=== PATIENT | male | born 1970 | race African-American/Black ===

== ENCOUNTER 2019-08-22 11:11 | Emergency (ER) | payer SELFPAY ==
[2019-08-22 11:17] VITALS: BP 110/70; PULSE 77; RESP 18; TEMP 36.7; O2SAT 96
--- NOTE | 2019-08-22 11:56 | PC.NURSE ---
Provider in room, found room empty with gown on chair.
== END 2019-08-22 11:56 | disposition left against medical advice (07) ==
PROVIDERS: Emergency Provider Emergency Medicine
DX: Z53.21 Procedure and treatment not carried out due to patient leaving prior to being seen by health care provider (principal)
CPT/HCPCS: 99199

== ENCOUNTER 2019-08-24 07:48 | Emergency (ER) | payer SELFPAY ==
--- NOTE | ~2019-08-24 | XR_ITS ---
EXAMINATION: XR chest 2V EXAM DATE: 08/24/2019 08:25 INDICATION: Cough for 2 weeks. TECHNIQUE: Frontal and lateral projections of the chest obtained and reviewed. Comparison is made to prior examination from 07/17/2019. FINDINGS: Previously seen right basilar somewhat nodular region has resolved. The lungs are clear. There are no pleural effusions. The cardiomediastinal silhouette is within normal limits. There is no pneumothorax suspected. The bones and soft tissues are unremarkable. IMPRESSION: Normal chest x-ray exam. Reviewed, dictated and finalized at location A. 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
[2019-08-24 08:00] VITALS: BP 136/73; PULSE 71; RESP 14; TEMP 37.5; O2SAT 100
[2019-08-24 08:03] VITALS: O2SAT 100
--- NOTE | 2019-08-24 08:04 | ED.URI ---
HPI - URI/Sore Throat General Chief Complaint: Upper Respiratory Infection Stated Complaint: congestion Time Seen by Provider: 08/24/19 08:01 Source: patient and RN notes reviewed Mode of arrival: ambulatory Limitations: no limitations History of Present Illness HPI Narrative: Pt is a 49 y/o male who presents to the ED with c/o chest congestion which began 3 days ago. Pt reports a productive cough, but denies a fever, chills, or pain anywhere else in his body. Pt reports he is producing thick white mucus when he coughs. He states he believes he may have pneumonia which prompted him to come to the ED to be evaluated. Pt reports he was seen in the ED yesterday for the same complaints, but left AMA. He states he is back at the ED today because he was not given a formal diagnosis. MD elicited complaint: other (chest congestion) Onset (ago): day(s) (3 days ago) Consistency: constant Description of mucous: other (thick white) Exacerbating factors: nothing Relieving factors: nothing Associated symptoms: cough (productive) Related Data Home Medications Medication Instructions Recorded Confirmed lisinopril 20 1 tablet PO BID 07/27/19 mg-hydrochlorothiazide 12.5 mg tablet atorvastatin 08/24/19 Allergies Allergy/AdvReac Type Severity Reaction Status Date / Time No Known Allergies Allergy Unknown Verified 07/17/19 13:59 Review of Systems Review of Systems: All systems reviewed & are unremarkable except as noted in HPI and below Constitutional: Constitutional: Denies chills, Denies fever(s) and Denies other (pain anywhere else in her body) Cardiovascular: Cardiovascular: Reports other (chest congestion) Respiratory: Respiratory: Reports cough (productive) PMFSH Past Medical History Medical History (Updated 08/24/19 @ 08:52 by Max Mccormick MD) Diabetes Hyperlipidemia Hypertension Sickle cell trait Social History Social History Smoking status: Never smoker Alcohol intake: current Gender identity (if verbalized by the patient): Male Exam Narrative: Exam Narrative: GENERAL: Well-appearing, well-nourished, and in no acute distress. HEAD: Normocephalic, atraumatic. EYES: PERRLA and EOMI. ENT: Nares clear, no rhinorrhea or epistaxis. Mucous membranes moist. NECK: Supple. CHEST: Clear to auscultation. No respiratory distress. HEART: Regular rate and rhythm. No murmur heard. Normal peripheral pulses. ABDOMEN: Soft, nontender, nondistended, normal active bowel sounds. EXTREMITIES: Normal range of motion. No edema. SKIN: Warm, dry, no rash. NEURO: No focal deficits. Alert and oriented x3. PSYCH: Normal mood and affect. Course Course Emergency Course: Inform patient about his x-ray findings. Advised him to continue to take [id number] cough medicine as needed. Vital Signs Vital signs: Vital Signs Temperature 37.5 C 08/24/19 08:00 Pulse Rate 71 08/24/19 08:00 Respiratory Rate 14 08/24/19 08:00 Blood Pressure 136/73 08/24/19 08:00 Pulse Oximetry 100 08/24/19 08:00 Temperature 37.5 C 08/24/19 08:00 Pulse Rate 71 08/24/19 08:00 Respiratory Rate 14 08/24/19 08:00 Blood Pressure 136/73 08/24/19 08:00 Pulse Oximetry 100 08/24/19 08:03 Discharge Plan Discharge Clinical Impression: Viral infection Patient Disposition: Home, Self-Care Condition: Stable Instructions: Antibiotic Form, Viral Syndrome (ED) Prescriptions: No Action atorvastatin RF: 0 lisinopril-hydrochlorothiazide 20-12.5 mg tablet 1 tablet PO BID RF: 0 amlodipine 10 mg tablet 10 mg PO DAILY Qty: 90 RF: 1 Follow-up/Referrals: UNKNOWN,DOCTOR [Primary Care Provider] - Time of Disposition: 08:51
[2019-08-24 09:01] VITALS: BP 132/74; PULSE 80; RESP 14; O2SAT 99
== END 2019-08-24 09:03 | disposition home or self-care (01) ==
PROVIDERS: Emergency Provider Family Medicine
DX: B34.9 Viral infection, unspecified (principal); E11.9 Type 2 diabetes mellitus without complications; E78.5 Hyperlipidemia, unspecified; I10 Essential (primary) hypertension; D57.3 Sickle-cell trait
CPT/HCPCS: 71046; 99283

== ENCOUNTER 2020-02-04 17:31 | Emergency (ER) | payer SELFPAY ==
[2020-02-04 18:10] VITALS: BP 147/85; PULSE 112; RESP 16; TEMP 36.8; O2SAT 98
== END 2020-02-04 19:21 | disposition left against medical advice (07) ==
LOC: ANHED 19:26
PROVIDERS: PCP Family Medicine
DX: M25.472 Effusion, left ankle (principal)
CPT/HCPCS: 99199

== ENCOUNTER 2020-02-10 17:42 | Emergency (ER) | payer BC, SELFPAY ==
[2020-02-10 17:47] VITALS: BP 157/104; PULSE 97; RESP 18; TEMP 37.1; O2SAT 18
[2020-02-10 18:00] LABS: Basophils Percent Auto 0.1 % (0.2-1.2); Eosinophils Absolute Auto 0.1 K/mm3 (0-0.3); Eosinophils Percent Auto 0.9 % (0-4.4); Hematocrit 41.4 % (42.0-52.0); Hemoglobin 14.5 g/dL (14.0-18.0); Immature Granulocyte Absolute 0.02 K/mm3 (0.00-0.031); Immature Granulocyte Percent A 0.3 % (0-0.5); Mean Corpuscular Hemoglobin 28.6 pg (26-34); Mean Corpuscular Volume 81.7 fl (80-100); Mean Platelet Volume 10.5 fl (7.4-10.4); Monocytes Absolute Auto 0.4 K/mm3 (0.1-0.6); Monocytes Percent Auto 5.9 % (2.6-8.5); Neutrophils Percent Auto 58.8 % (45.5-73.1); Platelet Count Result 196 k/mm3 (150-375); Red Blood Count 5.07 M/mm3 (4.6-6.20); Red Cell Distribution Width 12.9 % (11.5-14.5); White Blood Count 6.8 K/mm3 (4.5-10.0)
[2020-02-10 18:13] LABS: Alanine Aminotransferase 39 U/L (4-50); Albumin Level 4.6 g/dL (3.5-5.1); Alkaline Phosphatase 105 U/L (38-126); Aspartate Amino Transferase 33 U/L (17-59); Bilirubin,Total 1.9 mg/dL (0.2-1.3); Blood Urea Nitrogen 11 mg/dL (9-20); Carbon Dioxide 27 mmol/L (22-30); Chloride 101 mmol/L (98-107); Estimated CRCL calculation 103 ml/min; Estimated Glomerular Filt Rate > 60; Glucose 184 mg/dL (75-110); Sodium 139 mmol/L (137-145)
[2020-02-10 18:26] LABS: D Dimer 0.27 ug/mL (<0.48)
--- NOTE | 2020-02-10 19:02 | ED.LOWEXIN ---
HPI - Extremity Injury (Lower) General Chief Complaint: Extremity Injury, Lower Stated Complaint: Possible Blood Clot Time Seen by Provider: 02/10/20 19:02 History of Present Illness HPI Narrative: Swelling in the bilateral lower legs this morning. After work the swelling in the right leg had resolved. There is still swelling in the left ankle. 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 He is concerned about DVT. No h/o DVT. No CP, SOB, colf pain. H/o HTN. Related Data Allergies Allergy/AdvReac Type Severity Reaction Status Date / Time No Known Allergies Allergy Unknown Verified 02/04/20 18:13 Review of Systems Review of Systems: All systems reviewed & are unremarkable except as noted in HPI and below Constitutional: Constitutional: Denies fever(s) Cardiovascular: Cardiovascular: Denies chest pain Respiratory: Respiratory: Denies dyspnea Gastrointestinal: Gastrointestinal: Denies nausea and Denies vomiting Neurologic: Denies numbness and Denies weakness PMFSH Past Medical History Medical History Diabetes Hyperlipidemia Hypertension Sickle cell trait Social History Social History Smoking status: Never smoker Alcohol intake: current Gender identity (if verbalized by the patient): Male Exam Const: General: healthy appearing, no acute distress and alert Orientation/consciousness: patient oriented x3 HENMT: Head: normal to inspection Neck: Neck: normal visual inspection and no lymphadenopathy Chest: Chest palpation & inspection: no tenderness Resp: Effort & Inspection: normal respiratory effort Auscultation: clear to auscultation bilaterally, no rales, no rhonchi and no wheezes Cardio: Jugular venous distension: no JVD Rate: regular rate Rhythm: regular rhythm Heart sounds: no murmurs Other: 2+ Dp bilaterally Skin: General skin exam: normal color Wounds: no wounds Neuro: General: patient oriented x3 and moves all extremities Speech: normal speech Extrem: General: edema (Trace left ankle) Psych: Appearance: grossly normal and well kempt Mental Status: mental status grossly normal Affect: normal affect Attitude: cooperative Course Vital Signs Vital signs: Vital Signs Temperature 37.1 C 02/10/20 17:47 Pulse Rate 97 02/10/20 17:47 Respiratory Rate 18 02/10/20 17:47 Blood Pressure 157/104 H 02/10/20 17:47 Pulse Oximetry 18 L 02/10/20 17:47 Temperature 37.1 C 02/10/20 17:47 Pulse Rate 97 02/10/20 17:47 Respiratory Rate 18 02/10/20 17:47 Blood Pressure 157/104 H 02/10/20 17:47 Pulse Oximetry 18 L 02/10/20 17:47 Procedures Other Procedure Procedure 1: Other Procedure: Bedside US Left femoral and popliteal veins fully compressible. No DVT MDM - Extremity Injury (Lower) MDM Narrative Medical decision making narrative: D-dimer normal. No DVT on bedside ultrasound. Lab Data Result diagrams: 02/10/20 17:52 02/10/20 17:52 Labs: Lab Results 02/10/20 02/10/20 02/10/20 Range/Units 17:52 17:52 17:52 WBC 6.8 (4.5-10.0) K/mm3 RBC 5.07 (4.6-6.20) M/mm3 Hgb 14.5 (14.0-18.0) g/dL Hct 41.4 L (42.0-52.0) % MCV 81.7 (80-100) fl MCH 28.6 (26-34) pg MCHC 35.0 (32-36) g/dl RDW 12.9 (11.5-14.5) % Plt Count 196 (150-375) k/mm3 MPV 10.5 H (7.4-10.4) fl Immature Gran % (Auto) 0.3 (0-0.5) % Neut % (Auto) 58.8 (45.5-73.1) % Lymph % (Auto) 34.0 (18.3-44.2) % [place] % (Auto) 5.9 (2.6-8.5) % Eos % (Auto) 0.9 (0-4.4) % Baso % (Auto) 0.1 L (0.2-1.2) % Lymph # (Auto) 2.30 (0.9-3.2) K/mm3 [place] # (Auto) 0.4 (0.1-0.6) K/mm3 Eos # (Auto) 0.1 (0-0.3) K/mm3 Baso # (Auto) 0.0 (0.0-0.1) K/mm3 Abs Immat Gran (auto) 0.02 (0.00-0.031) K/mm3 Absolute Neuts (auto) 4.0 (1.3-6.7) K/mm3 Absolute Nucleated RBC 0.0 (0.0-0.012) K/mm3 N
== END 2020-02-10 19:23 | disposition home or self-care (01) ==
PROVIDERS: Emergency Medicine; Emergency Provider Emergency Medicine; PCP Family Medicine
DX: I10 Essential (primary) hypertension (principal); R60.9 Edema, unspecified; E11.9 Type 2 diabetes mellitus without complications; E78.5 Hyperlipidemia, unspecified
CPT/HCPCS: 36415; 80053; 85025; 85380; 99283

== ENCOUNTER 2020-03-10 07:39 | Emergency (ER) | payer OTHER, BC, SELFPAY ==
--- NOTE | ~2020-03-10 | XR_ITS ---
EXAMINATION: XR forearm LT 2V DATE: 03/10/2020 08:13 INDICATION: Left forearm injury with radial sided proximal left forearm pain. TECHNIQUE: AP an lateral views of the left forearm were obtained. COMPARISON: none FINDINGS: Bone alignment is normal. No fracture. No interval change in corticated heterotopic ossicles along th e medial and lateral epicondyles of the elbow along the expected humeral insertions of the common fle xor and extensor tendon wads as well as the ulnar collateral ligament likely sequela of old trauma. J oint spaces are normal. No left elbow joint effusion. Soft tissues are unremarkable. IMPRESSION: 1. No acute osseous abnormality. Reviewed, dictated and finalized at location B.
[2020-03-10 07:50] VITALS: BP 133/90; PULSE 85; RESP 16; TEMP 37; O2SAT 97
--- NOTE | 2020-03-10 09:03 | ED.UPPEXIN ---
HPI - Extremity Injury (Upper) General Chief Complaint: Extremity Injury, Upper Stated Complaint: left elbow pain Time Seen by Provider: 03/10/20 08:59 Source: patient Mode of arrival: ambulatory Limitations: no limitations History of Present Illness HPI narrative: Patient is 49 years old -[place] male hit the back of the left fore arm while getting out of a truck 3 weeks ago. Patient believes there is a bone sticking at that area. Patient denies fever, chills, nausea, vomiting, focal weakness, tingling or numbness. Related Data Allergies Allergy/AdvReac Type Severity Reaction Status Date / Time No Known Allergies Allergy Unknown Verified 03/10/20 07:59 Review of Systems Review of Systems: Narrative: CONSTITUTIONAL: Denies fever, chills, or sweats. EYES: Denies visual changes, redness, or discharge. ENT: Denies rhinorrhea, congestion, sore throat, or otalgia. CARDIOVASCULAR: Denies chest pain, palpitations, or edema. RESPIRATORY: Denies cough or dyspnea. GASTROINTESTINAL: Denies abdominal pain, nausea, vomiting, or diarrhea. GENITOURINARY: Denies dysuria or hematuria. SKIN: Denies rash or itching. MUSCULOSKELETAL: Denies back pain, joint pain, or myalgia. NEUROLOGIC: Denies headache, numbness, or weakness. PSYCHIATRIC: Denies anxiety or depression. [facility] Past Medical History Medical History Diabetes Hyperlipidemia Hypertension Sickle cell trait Social History Social History Smoking status: Never smoker Alcohol intake: current Gender identity (if verbalized by the patient): Male Exam Narrative: Exam Narrative: General appearance: Well-developed, well-nourished Skin: Normal color Head: Normocephalic, nontraumatic Eyes: Clear conjunctiva ENT: Oropharynx normal, ears normal, nose normal Neck: Supple, nontender Chest and respiratory: Airway patent, no respiratory distress, no accessory muscle use Heart: Regular rate/rhythm Abdomen: Soft, nontender, no organomegaly, quiet bowel sounds Vascular: Normal peripheral pulses, normal capillary refill. Musculoskeletal: Normal range of motion, nontender back. Slight tenderness left forearm posteriorly, no swelling, no bruises or deformity Neurologic: Alert and oriented ?3, BACT[employer]IOLOGIST [employer] is normal as tested, no gross motor deficit Course Course Emergency Course: Stable Vital Signs Vital signs: Vital Signs Temperature 37.0 C 03/10/20 07:50 Pulse Rate 85 03/10/20 07:50 Respiratory Rate 16 03/10/20 07:50 Blood Pressure 133/90 03/10/20 07:50 Pulse Oximetry 97 03/10/20 07:50 Temperature 37.0 C 03/10/20 07:50 Pulse Rate 85 03/10/20 07:50 Respiratory Rate 16 03/10/20 07:50 Blood Pressure 133/90 03/10/20 07:50 Pulse Oximetry 97 03/10/20 07:50 MDM - Extremity Injury (Upper) MDM Narrative Medical decision making narrative: Confusion is my concern, x-ray ordered. Critical Care Time Critical Care Time Critical Care Time: No Discharge Plan Discharge Clinical Impression: Contusion of left upper limb Patient Disposition: Home, Self-Care Condition: Stable Instructions: Contusion in Adults (ED) Additional Instructions: Return if symptoms are worsening , call your family physician for appointment, take Tylenol as as needed for aches and pain, continue home medications. Prescriptions: New naproxen [EC-Naproxen] 500 mg tablet,delayed release (DR/EC) 500 mg PO BID PRN (Reason: pain) Qty: 14 RF: 0 No Action amlodipine 10 mg tablet 10 mg PO DAILY Qty: 90 RF: 1 atorvastatin 40 mg tablet 40 mg PO .QHS Qty: 90 RF: 0 lisino
== END 2020-03-10 09:23 | disposition home or self-care (01) ==
PROVIDERS: Emergency Provider Emergency Medicine; PCP Family Medicine
DX: S50.12XA Contusion of left forearm, initial encounter (principal); E11.9 Type 2 diabetes mellitus without complications; E78.5 Hyperlipidemia, unspecified; I10 Essential (primary) hypertension; D57.3 Sickle-cell trait; W22.8XXA Striking against or struck by other objects, initial encounter
CPT/HCPCS: 73090; 99283

== ENCOUNTER 2020-11-30 16:37 | Emergency (ER) | payer BC, SELFPAY ==
[2020-11-30 16:41] VITALS: BP 170/81; PULSE 77; RESP 18; TEMP 36.3; O2SAT 99
--- NOTE | 2020-11-30 16:44 | ECG_ITS ---
Measurements Intervals [place] Rate: 69 P: 48 IN: 168 QRS: 11 QRSD: 103 T: 118 QT: 396 QTc: 426 Interpretive Statements SINUS RHYTHM EARLY PRECORDIAL R/S TRANSITION NONSPECIFIC ST & T-WAVE ABNORMALITY- LAT/HIGH LAT LEADS BORDERLINE ECG Electronically Signed On 11-30-2020 19:54:19 CDT by Jean Edwards D.O.
[2020-11-30 17:00] LABS: Basophils Percent Auto 0.1 % (0.2-1.2); Eosinophils Absolute Auto 0.1 K/mm3 (0-0.3); Eosinophils Percent Auto 0.7 % (0-4.4); Hematocrit 38.3 % (42.0-52.0); Hemoglobin 13.9 g/dL (14.0-18.0); Immature Granulocyte Absolute 0.02 K/mm3 (0.00-0.031); Immature Granulocyte Percent A 0.3 % (0-0.5); Lymphocytes Absolute Auto 2.38 K/mm3 (0.9-3.2); Lymphocytes Percent Auto 31.3 % (18.3-44.2); Mean Corpuscular HGB Conc 36.3 g/dl (32-36); Mean Corpuscular Volume 77.1 fl (80-100); Mean Platelet Volume 10.3 fl (7.4-10.4); Monocytes Absolute Auto 0.5 K/mm3 (0.1-0.6); Monocytes Percent Auto 6.2 % (2.6-8.5); Neutrophils Absolute Auto 4.7 K/mm3 (1.3-6.7); Neutrophils Percent Auto 61.4 % (45.5-73.1); Platelet Count Result 210 k/mm3 (150-375); Red Blood Count 4.97 M/mm3 (4.6-6.20); Red Cell Distribution Width 13.1 % (11.5-14.5); White Blood Count 7.6 K/mm3 (4.5-10.0)
[2020-11-30 17:18] LABS: Anion Gap 9 mmol/L (8-16); Blood Urea Nitrogen 14 mg/dL (9-20); Calcium 9.3 mg/dL (8.4-10.2); Carbon Dioxide 29 mmol/L (22-30); Chloride 103 mmol/L (98-107); Estimated CRCL calculation 101 ml/min; Estimated Glomerular Filt Rate > 60; Glucose 125 mg/dL (75-110); Sodium 141 mmol/L (137-145)
--- NOTE | 2020-11-30 18:17 | PC.NURSE ---
Pt called twice to go back to a room. pt did not answer
== END 2020-11-30 18:16 | disposition left against medical advice (07) ==
LOC: ANHED 18:28
PROVIDERS: Emergency Provider Emergency Medicine; PCP Family Medicine
DX: R42 Dizziness and giddiness (principal)
CPT/HCPCS: 36415; 80048; 85025; 93005; 99199

== ENCOUNTER 2020-12-01 09:20 | Emergency (ER) | payer BC, SELFPAY ==
[2020-12-01] VITALS (18 sets, daily range): BP systolic 132–156; BP diastolic 68–105; PULSE 56–74; RESP 8–23; TEMP 35.9; O2SAT 97–100
--- NOTE | ~2020-12-01 | XR_ITS ---
EXAMINATION: XR chest 2V DATE: 12/01/2020 10:28 INDICATION: Dizziness. TECHNIQUE: Frontal and lateral views of the chest were obtained. COMPARISON: Chest 2 views 08/24/2019 FINDINGS: The chest demonstrates clear lungs without pneumonia, pleural effusion, or pneumothorax. Th e heart size is normal. IMPRESSION: 1. No acute cardiopulmonary disease. Reviewed, dictated and finalized at location B.
--- NOTE | ~2020-12-01 | CT_ITS ---
EXAMINATION: CT brain wo con DATE: 12/01/2020 11:07 INDICATION: Dizziness and paresthesias. TECHNIQUE: Computed tomography (CT) of the head was performed without intravenous contrast. Sagittal and coronal reconstructions were performed. The mA was adjusted according to patient size. Iterative reconstruction technique was employed. The dose-length product was 529.67 mGy-cm. COMPARISON: head CT dated 07/17/2019 FINDINGS: No acute intracranial hemorrhage, acute infarction or abnormal extra axial fluid collection. Ventricl es are normal and symmetric. No mass/mass effect. The orbits, paranasal sinuses and mastoid air cells are normal. IMPRESSION: 1. Normal head CT. Reviewed, dictated and finalized at location A. IMPRESSION: 1. Normal head CT.
--- NOTE | 2020-12-01 09:30 | ECG_ITS ---
Measurements Intervals [place] Rate: 62 P: 58 NE: 167 QRS: 3 QRSD: 109 T: 178 QT: 398 QTc: 406 Interpretive Statements SINUS RHYTHM ST-T WAVE ABNORMALITY IN ANTEROLATERAL LEADS- CONSIDER ISCHEMIA BASELINE ARTIFACT- I, II, III, AVR, AVL,A VF, V2-V6 ABNORMAL ECG Electronically Signed On 12-01-2020 10:15:10 CDT by Jean Edwards D.O.
[2020-12-01 09:54] LABS: Basophils Percent Auto 0.4 % (0.2-1.2); Eosinophils Percent Auto 0.6 % (0-4.4); Hematocrit 43.4 % (42.0-52.0); Hemoglobin 14.9 g/dL (14.0-18.0); Immature Granulocyte Absolute 0.02 K/mm3 (0.00-0.031); Immature Granulocyte Percent A 0.4 % (0-0.5); Lymphocytes Absolute Auto 1.66 K/mm3 (0.9-3.2); Lymphocytes Percent Auto 31.6 % (18.3-44.2); Mean Corpuscular HGB Conc 34.3 g/dl (32-36); Mean Corpuscular Hemoglobin 28.4 pg (26-34); Mean Corpuscular Volume 82.7 fl (80-100); Mean Platelet Volume 10.4 fl (7.4-10.4); Monocytes Absolute Auto 0.3 K/mm3 (0.1-0.6); Monocytes Percent Auto 5.7 % (2.6-8.5); Neutrophils Absolute Auto 3.2 K/mm3 (1.3-6.7); Neutrophils Percent Auto 61.3 % (45.5-73.1); Platelet Count Result 210 k/mm3 (150-375); Red Blood Count 5.25 M/mm3 (4.6-6.20); White Blood Count 5.3 K/mm3 (4.5-10.0)
[2020-12-01 10:05] LABS: Anion Gap 7 mmol/L (8-16); Blood Urea Nitrogen 11 mg/dL (9-20); Calcium 9.7 mg/dL (8.4-10.2); Carbon Dioxide 32 mmol/L (22-30); Chloride 106 mmol/L (98-107); Estimated CRCL calculation 110 ml/min; Estimated Glomerular Filt Rate > 60; Glucose 191 mg/dL (75-110); Potassium 3.1 mmol/L (3.4-5.0); Sodium 145 mmol/L (137-145)
[2020-12-01 10:15] LABS: Alanine Aminotransferase 21 U/L (4-50); Albumin Level 4.6 g/dL (3.5-5.1); Alkaline Phosphatase 82 U/L (38-126); Aspartate Amino Transferase 35 U/L (17-59); Bilirubin,Total 2.1 mg/dL (0.2-1.3)
--- NOTE | 2020-12-01 10:51 | ED.DIZZY ---
HPI - Dizziness General Chief Complaint: Dizziness Stated Complaint: dizzy Time Seen by Provider: 12/01/20 09:56 Source: patient Mode of arrival: ambulatory Limitations: no limitations History of Present Illness HPI Narrative: This is a 50-year-old male that presents the emergency department for lightheadedness since yesterday. Reports it happens when he stands up. Reports it feels like he is going to pass out. Reports he was going to be seen here for this yesterday, but the wait was too long so he left. Reports yesterday he also had a headache and some tingling in his left arm which resolved after a couple of hours when he went out in the fresh air. Denies any current symptoms. Denies fever, vision changes, vomiting, chest pain, shortness of breath, numbness, or weakness. Related Data Allergies Allergy/AdvReac Type Severity Reaction Status Date / Time No Known Allergies Allergy Unknown Verified 03/10/20 07:59 Review of Systems Review of Systems: Narrative: CONSTITUTIONAL: Denies fever EYES: Denies visual changes CARDIOVASCULAR: Denies chest pain, or edema. RESPIRATORY: Denies dyspnea. GASTROINTESTINAL: Denies vomiting NEUROLOGIC: Denies headache, numbness, or weakness. All systems reviewed & are unremarkable except as noted in HPI and below PMFSH Past Medical History Medical History (Updated 12/01/20 @ 12:50 by Lori David PA-C) Diabetes Hyperlipidemia Hypertension Sickle cell trait Social History Social History Smoking status: Never smoker Alcohol intake: current Gender identity (if verbalized by the patient): Male Exam Narrative: Exam Narrative: GENERAL: Well-appearing, well-nourished, and in no acute distress. HEAD: Normocephalic, atraumatic. EYES: PERRLA and EOMI. ENT: Nares clear, no rhinorrhea or epistaxis. Mucous membranes moist. Oropharynx without tonsillar hypertrophy exudate or other lesions. Bilateral TMs pearly reich non-bulging NECK: Supple. No adenopathy or masses. CHEST: Clear to auscultation. No respiratory distress. No wheezes rales or rhonchi HEART: Regular rate and rhythm. No murmur heard. Normal peripheral pulses. ABDOMEN: Soft, nontender, nondistended, normal active bowel sounds. EXTREMITIES: Normal range of motion. No edema. Strength equal in bilateral upper and lower extremities (5/5) SKIN: Warm, dry, no rash. NEURO: No focal deficits. Alert and oriented x3. Cranial nerves II through XII grossly intact. Normal [id number] PSYCH: Anxious Course Vital Signs Vital signs: Vital Signs Temperature 96.6 F L 12/01/20 09:26 Pulse Rate 60 12/01/20 09:26 Respiratory Rate 18 12/01/20 09:26 Blood Pressure 150/93 H 12/01/20 09:26 Pulse Oximetry 99 12/01/20 09:26 Temperature 96.6 F L 12/01/20 09:26 Pulse Rate 74 12/01/20 10:05 Respiratory Rate 20 12/01/20 10:05 Blood Pressure 135/105 H 12/01/20 10:05 Pulse Oximetry 100 12/01/20 10:05 MDM - Dizziness MDM Narrative Medical decision making narrative: Patient presents the emergency department for intermittent lightheadedness since yesterday. He is a febrile nontoxic-appearing. He is neurologically intact. Vitals are stable. He denies any chest pain or shortness of breath. CBC without concerning findings. Metabolic panel with mild hypokalemia. Patient given dose of potassium in the ED. Chest x-ray is without acute findings. CT scan of the brain is normal. EKG shows nonspecific ST changes. This appears unchanged from his EKG in July of last year. Once again he denies any chest pain or shortness of breath. Reports relief of symptoms with mild hydration. Would like to go home. Patient is stable and felt appropriate for further outpatient evaluation. Instructed to have close follow-up with his primary care doctor. He was given warnings to return to the ER Lab Data Attestation: I reviewed the patient's lab results. Result diagrams: 11/06
[2020-12-01] MEDS: POTASSIUM CHLORIDE 20 MEQ TABLET 40 MEQ PO (10:55)
[2020-12-01] MEDS: SODIUM CHLORIDE 0.9% IV 500 ML 999 ML IV CONT (11:15)
== END 2020-12-01 12:57 | disposition home or self-care (01) ==
PROVIDERS: Physician Assistant; Emergency Provider Emergency Medicine; PCP Physician Assistant
DX: R42 Dizziness and giddiness (principal); E87.6 Hypokalemia; E11.9 Type 2 diabetes mellitus without complications; E78.5 Hyperlipidemia, unspecified; I10 Essential (primary) hypertension; D57.3 Sickle-cell trait
CPT/HCPCS: 36415; 70450; 71046; 80048; 80076; 85025; 93005; 96360; 99284; A9270; J7040

== ENCOUNTER 2021-01-28 22:19 | Emergency (ER) | payer BC, SELFPAY ==
[2021-01-28 22:26] VITALS: BP 114/94; PULSE 72; RESP 18; TEMP 36.5; O2SAT 100
--- NOTE | 2021-01-28 23:56 | PC.NURSE ---
Pt called for room at this time. No answer.
--- NOTE | 2021-01-29 00:18 | PC.NURSE ---
2nd call to bring pt back to room. No answer.
[2021-01-29 08:37] LABS: Glucose Point of Care 181 mg/dl (65-105)
== END 2021-01-28 23:56 | disposition left against medical advice (07) ==
PROVIDERS: Emergency Provider Emergency Medicine; PCP Physician Assistant
DX: R73.9 Hyperglycemia, unspecified (principal)
CPT/HCPCS: 82948; 99199

== ENCOUNTER 2021-01-31 21:55 | Emergency (ER) | payer BC, SELFPAY ==
[2021-01-31 22:21] VITALS: BP 134/93; PULSE 71; RESP 15; TEMP 36.3; O2SAT 100
[2021-01-31 22:30] LABS: Glucose Point of Care 139 mg/dl (65-105)
[2021-01-31 22:36] LABS: Basophils Percent Auto 0.3 % (0.2-1.2); Eosinophils Absolute Auto 0.1 K/mm3 (0-0.3); Hemoglobin 13.7 g/dL (14.0-18.0); Immature Granulocyte Absolute 0.01 K/mm3 (0.00-0.031); Immature Granulocyte Percent A 0.1 % (0-0.5); Lymphocytes Absolute Auto 1.87 K/mm3 (0.9-3.2); Lymphocytes Percent Auto 27.7 % (18.3-44.2); Mean Corpuscular HGB Conc 33.4 g/dl (32-36); Mean Corpuscular Volume 83.7 fl (80-100); Mean Platelet Volume 10.5 fl (7.4-10.4); Monocytes Absolute Auto 0.5 K/mm3 (0.1-0.6); Monocytes Percent Auto 7.2 % (2.6-8.5); Neutrophils Absolute Auto 4.3 K/mm3 (1.3-6.7); Neutrophils Percent Auto 63.7 % (45.5-73.1); Platelet Count Result 210 k/mm3 (150-375); Red Cell Distribution Width 13.1 % (11.5-14.5); White Blood Count 6.8 K/mm3 (4.5-10.0)
[2021-01-31 23:36] LABS: Anion Gap 10 mmol/L (8-16); Blood Urea Nitrogen 13 mg/dL (9-20); Calcium 9.2 mg/dL (8.4-10.2); Carbon Dioxide 30 mmol/L (22-30); Chloride 98 mmol/L (98-107); Estimated CRCL calculation 91 ml/min; Estimated Glomerular Filt Rate > 60; Glucose 120 mg/dL (65-110); Potassium 3.3 mmol/L (3.4-5.0); Sodium 138 mmol/L (137-145)
--- NOTE | 2021-01-31 23:40 | PC.NURSE ---
Pt. up to front worker asking RN how much longer. RN educated pt. that it is difficult to tell. pt. states he doesn't know if he should stay or leave. Pt. NAD upon assessment.
--- NOTE | 2021-02-01 00:20 | PC.NURSE ---
Pt. called 2x for triage. no answer.
== END 2021-02-01 01:06 | disposition left against medical advice (07) ==
PROVIDERS: Emergency Provider Emergency Medicine; PCP Physician Assistant
DX: R42 Dizziness and giddiness (principal)
CPT/HCPCS: 36415; 80048; 82948; 85025; 99199

== ENCOUNTER 2021-02-26 07:39 | Emergency (ER) | payer BC, SELFPAY ==
[2021-02-26 07:46] VITALS: BP 129/66; PULSE 62; RESP 18; TEMP 36.6; O2SAT 99
--- NOTE | 2021-02-26 07:57 | ED.EAR ---
HPI - Ear Problem General Chief complaint: Ear Stated complaint: left ear ache Time Seen by Provider: 02/26/21 07:45 Source: patient and RN notes reviewed Mode of arrival: ambulatory Limitations: no limitations History of Present Illness HPI Narrative: This is a 50 year old male who presents for evaluation of left ear pain. Patient reports left inner ear pain for 1 week. HE states pain seems worse with laying on it. He has placed peroxide in his left ear and he states his pain has improved. He denies fever, runny nose congestion, nausea or vomiting. He denies any drainage from his ear. Related Data Home Medications Medication Instructions Recorded Confirmed atorvastatin 40 mg PO HS 02/26/21 lisinopril-hydrochlorothiazide 1 tablet PO BID 02/26/21 metformin 500 mg PO DAILY 02/26/21 02/26/21 Allergies Allergy/AdvReac Type Severity Reaction Status Date / Time No Known Allergies Allergy Unknown Verified 02/26/21 07:50 Review of Systems Review of Systems: All systems reviewed & are unremarkable except as noted in HPI and below PMFSH Past Medical History Medical History (Updated 02/26/21 @ 08:02 by Hyacinth Ureña MD) Diabetes Hyperlipidemia Hypertension Sickle cell trait Social History Social History Smoking status: Never smoker Alcohol intake: current Gender identity (if verbalized by the patient): Male Exam Const: General: no acute distress and alert Orientation/consciousness: patient oriented x3 HENMT: Head: normocephalic and atraumatic Ears: external ears normal and TM's normal bilaterally General nose exam: Normal external nose present Face and sinus: normal facial exam, sinuses nontender and face symmetric Mouth: Yes Normal oral and palatal mucosa present, Yes lip normal, Yes oropharynx normal and Yes moist mucous membranes Teeth and gingiva: fair dentition Throat: posterior oropharynx normal, tonsils normal and uvula midline Eyes: Pupils: Equal, round and reactive pupils present EOM: EOMs intact bilaterally Resp: Effort & Inspection: normal respiratory effort Neuro: General: patient oriented x3 and moves all extremities Gait exam (Neuro): Normal gait present Psych: Mental Status: mental status grossly normal Affect: normal affect Course Reevaluation(s) Reevaluation #1: I have discussed with patient is ear exam is unremarkable. He will try using over the counter decongestants. Date: 02/26/21 Time: 08:00 Vital Signs Vital signs: Vital Signs Temperature 97.8 F 02/26/21 07:46 Pulse Rate 62 02/26/21 07:46 Respiratory Rate 18 02/26/21 07:46 Blood Pressure 129/66 02/26/21 07:46 Pulse Oximetry 99 02/26/21 07:46 Temperature 97.8 F 02/26/21 07:46 Pulse Rate 62 02/26/21 07:46 Respiratory Rate 18 02/26/21 07:46 Blood Pressure 129/66 02/26/21 07:46 Pulse Oximetry 99 02/26/21 07:46 Medical Decision Making Vital Signs Vital Signs: Vital Signs Temperature 97.8 F 02/26/21 07:46 Pulse Rate 62 02/26/21 07:46 Respiratory Rate 18 02/26/21 07:46 Blood Pressure 129/66 02/26/21 07:46 Pulse Oximetry 99 02/26/21 07:46 Temperature 97.8 F 02/26/21 07:46 Pulse Rate 62 02/26/21 07:46 Respiratory Rate 18 02/26/21 07:46 Blood Pressure 129/66 02/26/21 07:46 Pulse Oximetry 99 02/26/21 07:46 Discharge Plan Discharge Clinical Impression: Otalgia of left ear Patient Disposition: Home, Self-Care Condition: Stable Instructions: Antibiotic Form, Allergic Rhinitis (ED) Additional Instructions: Today you were seen for left ear ache. Your ear exam is normal. Try over the counter decongestants such as claritin D. Take tylenol and ibuprofen for your pain. Prescriptions: No Action metformin 500 mg tablet 500 mg PO DAILY RF: 0 atorvastatin 40 mg tablet 40 mg PO HS RF: 0 lisinopril-hydrochlorothiazide 20-12.5 mg tablet
== END 2021-02-26 09:04 | disposition home or self-care (01) ==
LOC: ANHED 08:06
PROVIDERS: Emergency Provider General Practice; PCP Physician Assistant
DX: H92.02 Otalgia, left ear (principal); E11.9 Type 2 diabetes mellitus without complications; E78.5 Hyperlipidemia, unspecified; I10 Essential (primary) hypertension; D57.3 Sickle-cell trait; Z79.84 Long term (current) use of oral hypoglycemic drugs
CPT/HCPCS: 99281

== ENCOUNTER 2021-03-04 00:08 | Emergency (ER) | payer BC, SELFPAY ==
[2021-03-04 00:13] VITALS: BP 146/82; PULSE 53; RESP 18; TEMP 36.4; O2SAT 100
== END 2021-03-04 01:28 | disposition left against medical advice (07) ==
LOC: ANHED 01:25
PROVIDERS: Emergency Provider Emergency Medicine; PCP Physician Assistant
DX: H92.02 Otalgia, left ear (principal)
CPT/HCPCS: 99199

== ENCOUNTER 2023-04-22 20:31 | Emergency (ER) | payer BC, SELFPAY ==
[2023-04-22 20:35] VITALS: BP 161/86; PULSE 63; RESP 16; TEMP 36.5; O2SAT 99
--- NOTE | 2023-04-22 21:28 | PC.NURSE ---
Patient was called back for a room. No answer at 2047
--- NOTE | 2023-04-22 21:43 | PC.NURSE ---
Patient again called out in triage area to be taken back to a room. No answer.
== END 2023-04-22 21:28 | disposition left against medical advice (07) ==
PROVIDERS: PCP Family Medicine
DX: I10 Essential (primary) hypertension (principal)
CPT/HCPCS: 99199

== ENCOUNTER 2023-11-14 10:34 | Emergency (ER) | payer BC, SELFPAY ==
[2023-11-14 11:01] VITALS: BP 139/85; PULSE 63; RESP 17; TEMP 36.3; O2SAT 100
[2023-11-14 13:15] VITALS: BP 140/103; PULSE 62; RESP 16; O2SAT 98
[2023-11-14 13:39] VITALS: BP 134/91; PULSE 57; RESP 18
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
== END 2023-11-14 14:07 | disposition home or self-care (01) ==
PROVIDERS: Emergency Provider Emergency Medicine; PCP Family Medicine
DX: I10 Essential (primary) hypertension (principal); E11.9 Type 2 diabetes mellitus without complications; E78.5 Hyperlipidemia, unspecified; D57.3 Sickle-cell trait; F43.10 Post-traumatic stress disorder, unspecified; Z79.84 Long term (current) use of oral hypoglycemic drugs
CPT/HCPCS: 99281

== ENCOUNTER 2025-01-09 04:50 | Emergency (ER) | payer OTHER, BC, SELFPAY ==
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
--- OUTSIDE RECORDS SUMMARY | 2025-01-09 04:51 | XMS_ITS | Clinical Summary ---
Author Organization [facility] Address [facility] [place] [address] Care Team Providers Care Library Media Assistant Name Role Phone Unavailable Primary Care Provider Unavailabl e Allergies No known active allergies Medications lisinopril 10 MG tablet Take 10 mg by mouth daily. Active Active Problems No known active problems Social History Tobacco Use Types Packs/Day Years Used Date Smoking Tobacco: Never Smokeless Tobacco: Never Alcohol Use Standard Drinks/Week Comments No 0 (1 standard drink = 0.6 oz pur e alcohol) Sex and Gender Information Value Date Recorded Sex Assigned at Not on file Legal Sex Male 5:14 PM CDT Gender Identity Not on file Sexual Orientation Not on file Last Filed Vital Signs Vital Sign Reading Time Taken Comments Blood Pressure 155/82 08/23/2017 8:55 AM DESK OFFICER Pulse 68 08/23/2017 8:55 AM DESK OFFICER Temperature 36.5 C (97.7 F) 08/23/2017 8:55 AM DESK OFFICER Respiratory Rate 18 08/23/2017 8:55 AM DESK OFFICER Oxygen Saturation 98% 08/23/2017 8:55 AM DESK OFFICER Inhaled Oxygen Concentration - - Weight 129.7 kg (286 lb) 08/23/2017 8:55 AM DESK OFFICER Height 180.3 cm (5' 11) 08/23/2017 8:55 AM DESK OFFICER Body Mass Index 39.89 08/23/2017 8:55 AM DESK OFFICER Plan of Treatment Health Maintenance Due Date Last Done Comments Colorectal Cancer Screening Colonoscopy (10 Years) 1968 Annual Physical 1971 Hepatitis C 1986 DTaP, Tdap and Td Vaccines ( 1 - Tdap) 1987 Hepatitis B Vaccines (1 of 3 - 19+ 3-dose series) 1987 Pneumococcal Vaccine: 50+ Ye ars (1 of 1 - PCV) 2018 Zoster Vaccines (1 of 2) 2018 COVID-19 Vaccine (2023-2 5 season) 2024 Meningococcal B Vaccine Aged Out No l onger eligible based on patient's age to complete this topic Meningococcal Vaccine Aged Out No akilah tayo eligible based on patient's age to complete this topic RSV Immunizations Under 20 Months Aged Out No longer eligible based on patient's age to complete this topic
--- OUTSIDE RECORDS SUMMARY | 2025-01-09 04:51 | XMS_ITS | Data Portability ---
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 hypertension 39532076 I10 Hyperlipidemia 80816153 E78.5 Primary er ectile dysfunction 126548875 N52.9 discussed how to use sildenafil for maximum effectiven [facility] [id number] Sophia Harrell MD [facility] [address] [facility] [place] [address] 07/14/2020 08:48:44 07/14/2020 11:31:54 Health Concerns Section Related Observation LastModified by Organization Detai ls LastModified Time None Recorded Concern Status LastModified by Organization Details LastModified Time None Recorded Advance Directives Directive None Recorded Payers Insurance Date Sequence Insurance Name Policy Number Policy Goodwin Covered Member ID Goodwin Member ID Guarantor Name 04/25/2020 2 [facility] [id number] Niels Judge [id number] Niels Judge 07/27/2021 1 [facility] [id number] Niels Judge [id number] Niels Judge 08/07/2019 SLIDING FEE SCHEDULE - DISCOUNT Niels Judge 04/25/2020 2 [facility]NA [id number] Niels Judge [id number] Niels Judge 10/20/2015 1 *SELF PAY* Ce cil Judge 04/25/2020 1 [facility] [id number] Niesl Judge [id number] Niels Judge 12/05/2017 SLIDING FEE SCHEDULE - DISCOUNT Niels Judge 11/03/2019 1 *SELF PAY* Ce cil Judge 07/26/2017 2 *SELF PAY* Ce cil Judge Notes Date Note Type Note Provider Name and Address Organization Details Recorded Time 08/07/19 20 text/htm l Diabetes F/UReported bypatient.Labs:last A1C result: 5.9 Context:checking feet regularly Associated Symptoms:increased thirst;increased appetite;increased urination;numbness of feetNotes:Patient's metformin was discontinued in 2018, so we need to see how his sugars are doing.Erectile DysfunctionReported bypatient.Quality:loss of function; loss of desire for several years; spouse is still interested. Severity:worsening Duration:frequent/every time Modifying Factors:medication;family history of diabetes Associated Symptoms:no penile discharge;decreased libidoHypertension F/UReported bypatient.Associated Symptoms:no dizziness; no lightheadedness; no chest pain; no shortness of breath; no palpitations; no edema; no calf pain with exertion Lifestyle:regular exercise; limiting/avoiding salt Medications:taking medications as directed; no side effects from medication pt. just turned 48, wanting a check up and make sure everything is good as well as his prostate. Sophia Harrell MD Attn: Accounting, [address] [facility], [place], [address], [facility] 08/07/2019 23:09:23 11/03/19 20 text/htm l Diabetes F/UReported bypatient.Labs:last A1C result: 5.9 Context:seeing eye doctor regularly; checking feet regularly; follows diet, does not take medication for blood sugar. Associated Symptoms:no weight gain; no headaches; no increased thirst; no increased appetite; no increased urination; no blurred vision; no numbness of feet; no calluses on feetHyperlipidemiaReported bypatient.Duration:chronic Control:improving Current Therapy:currently taking: (atorvastatin) Compliance:compliant with diet Complications:cardiovascular disease Risk Factors:positive family history of premature arteriosclerotic cardiovascular disease;diabetes;hypertension;ob esityHypertension F/UReported bypatient.Associated Symptoms:no dizziness; no chest pain; no shortness of breath; no palpitations; no edema Lifestyle:regular exercise Medications:taking medications as directed; no side effects from medicationNotes:takes amlodipine and lisinopril with hydrochlorothiazide.Peripheral NeuropathyReported bypatient.Hand Dominance:right Location:numbness;tingling;weak limbs Quality:cramping;progressively worse over months Severity:moderate Duration:has noted for months Onset/Timing:worse; gradual onset Context:no change in mood; no change in sleep Associated Symptoms:weakness;loss of muscle mass;drops itemsNotes:worse with repeated use of the left arm and shoulder. Sophia Harrell MD Attn: Accounting, [address] [facility], [place], [address], [facility] 11/05/2019 17:26:41 12/01/19 20 text/htm l Colonoscopy ScreeningReported bypatient.GI Symptoms:no abdominal pain; no diarrhea; no constipation; no recent change in bowel movements; no change in the stool; no color change in stool; no rectal bleeding Associated Symptoms:normal appetite; no fever; no chills; no nausea; no vomiting Context:no prior examination; no history of colon polyps; no history of ulcerative colitis or Crohn's Disease Family History:no polyps; no colon cancer Phone consent: This visit was completed via telephone due to social distancing and the restrictions of the COVID-19 pandemic. Vital signs deferred. All issues as below were discussed and addressed but no physical exam was performed. If it was felt that the patient should be evaluated in the clinic, then they were directed there. The patient verbally consented to the visit. Telemedicine visit: Audio, declined video Location: Provider home to patient home Duration of appointment: 20 minutes Presents by telemedicine as referred by Dr. Sophia Harrell for screening colonoscopy. Has not had a colonoscopy in the past. FH, PMH, SH, medications and allergies reviewed and updated CAMI SUAREZ NP [address] [place], [address], [facility] 12/01/2019 16:55:23 04/14/20 20 text/htm l Erectile DysfunctionReported bypatient.Quality:loss of function Severity:moderate Duration:frequent/every time Modifying Factors:unusual stress or tension with partner;medication;family history of diabetes; personal history of diabetes Associated Symptoms:no dysuria; no penile discharge; normal libidoHyperlipidemiaReported bypatient.Duration:chronic Control:improving Current Therapy:currently taking: (atorvastatin) Compliance:compliant with diet Complications:cardiovascular disease Risk Factors:positive family history of premature arteriosclerotic cardiovascular disease;hypertension;obesityHype rtension F/UReported bypatient.Associated Symptoms:no dizziness; no chest pain; no shortness of breath; no palpitations; no edema Lifestyle:regular exercise Medications:taking medications as directed; no side effects from medication Sophia Harrell MD Attn: Accounting, [address] [place], [address], [facility] 04/20/2020 23:04:37
--- OUTSIDE RECORDS SUMMARY | 2025-01-09 04:51 | XMS_ITS | Continuity of Care Document ---
Author Organization [facility] Address [address] [place] [address] Phone Care Team Providers Care Yarn Twister Name Role Phone Adelia PT, DPT, Love Unavailable Unavailable Procedures Procedure Date Therapeutic Activities Therapeutic Exercise Neuromuscular Re-Ed Hot or Cold Pack Therapeutic Activities Neuromuscular Re-Ed Therapeutic Exercise Hot or Cold Pack Therapeutic Activities Neuromuscular Re-Ed Hot or Cold Pack Therapeutic Exercise Therapeutic Activities Therapeutic Exercise Neuromuscular Re-Ed Hot or Cold Pack Manual Therapy PT Evaluation Moderate Complexity Therapeutic Exercise Neuromuscular Re-Ed Manual Therapy Advance Directives Directive Yes / No Effective Date File Name No Information Encounters Encounter Description Practice Location Reason(s) For Visit Diagnoses Date Provider Providers Copied on Encounter [facility], [place], [place], [id number], tel:[phone] [place] No Information 0 Adelia Aleman. . [facility], [place], [place], [address], tel:[phone] [place] No Information 0 Adelia Aleman. . [facility], [place], [place], [address], tel:[phone] [place] No Information 0-202 0 Adelia Aleman. . [facility], [place], [place], [address], tel:[phone] [place] No Information 3-202 0 Adelia Aleman. . [facility], [place], [place], [address], tel:[phone] [place] No Information 9-202 0 Adelia Aleman. . [facility], [address], [place], [place], [address], tel:[phone] [place] No Information 7-202 0 Adelia Aleman. . Family History Family Member Type Diagnosis Age At Onset No Information Payers Payer name Insurance type Covered libertarian ID Authoriza tion(s) No Information Social History Type Description Quantity Date Captured Comments Sex Male Smoking Status No Information Chief Complaint And Reason For Visit No Information Reason For Referral Reason For Referral No Information Plan Of Treatment Date Type Action Status Referral Ordered: PCP timeframe: 1 week. (related to Overweight) ordered Referral Ordered: Weight management: Referral to physician timeframe: 1 Month (related to Overweight) ordered History Of Present Illness Encounter Date Complaint History Of Prese nt Illness No Information Functional Status Date Functional Assessmen t No Information Instructions Date Instruction Additional Infor mation No Information Assessments Type Assessment Date No Information Patient Care Teams Name Effective Dates (start - stop) Status Members No Information
--- OUTSIDE RECORDS SUMMARY | 2025-01-09 04:52 | XMS_ITS | Clinical Summary ---
Author Organization [facility] Address [address] [place] [address] Care Team Providers Care Social Work Assistant Name Role Phone Unavailable Primary Care Provider Unavailabl e Source Comments [facility],non-owned Affiliates and Associated Physician Practices is amultiple site organization consisting of ambulatory clinics and hospital sitesin [place], [place], [place] and [place]. This disclosure is being madepursuant to the Care Everywhere program and may not contain all information available regarding this patient. 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 Gender Identity Not on file Sexual Orientation Not on file Plan of Treatment Health Maintenance Due Date Last Done Comments COLOGUARD (AGES 45-75) - COL ON CA SCREENING 1968 COLON MONITORING 1968 COLONOSCOPY - COLON CA SCREENING 1968 CT COLONOGRAPHY - COLON CA SCREENING 1968 Colorectal Cancer Screening 1968 FIT - COLON CA SCREENING 1968 FLEX SIG - COLON CA SCREENING 1968 LIPID TESTING 1968 HIV SCREENING 1983 HEPATITIS C SCREENING 06/20/1986 DTAP/TDAP/TD VACCINES (1 - Tdap) 1987 HEPATITIS B VACCINE (1 of 3 - 19+ 3-dose series) 1987 PNEUMOCOCCAL VACCINE 50+ (1 of 1 - PCV) 2018 ZOSTER VACCINE (1 of 2) 2018 COVID-19 VACCINE (1 - 2023-2 5 season) 2024 DEPRESSION SCREENING 07/08/2024 INFLUENZA VACCINE (Season Ended) 2025 HIB VACCINE Aged Out No longer eligi ble based on patient's age to complete this topic HPV VACCINE Aged Out No longer eligi ble based on patient's age to complete this topic MENINGOCOCCAL (Group B) VACC INE SHARED DECISION-MAKING Aged Out No longer eligibl e based on patient's age to complete this topic MENINGOCOCCAL GROUPS A/C/Y/W VACCINE Aged Out No longer eligible b ased on patient's age to complete this topic
[2025-01-09 04:53] VITALS: BP 138/88; PULSE 58; RESP 16; TEMP 36.7; O2SAT 98
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
--- OUTSIDE RECORDS SUMMARY | 2025-01-09 05:26 | XMS_ITS | Clinical Summary ---
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
--- OUTSIDE RECORDS SUMMARY | 2025-01-09 05:26 | XMS_ITS | Continuity of Care Document ---
Author Organization [facility] Address [address] [place] [address] Phone Care Team Providers Care Tar Worker Name Role Phone Adeila PT, CHRISTIANT, Love Unavailable Unavailable Procedures Procedure Date Therapeutic Activities Therapeutic Exercise Hot or Cold Pack Neuromuscular Re-Ed Therapeutic Activities Neuromuscular Re-Ed Hot or Cold Pack Therapeutic Exercise Therapeutic Activities Neuromuscular Re-Ed Hot or Cold Pack Therapeutic Exercise Therapeutic Activities Therapeutic Exercise Neuromuscular Re-Ed Manual Therapy Hot or Cold Pack PT Evaluation Moderate Complexity Neuromuscular Re-Ed Therapeutic Exercise Manual Therapy Advance Directives Directive Yes / No Effective Date File Name No Information Encounters Encounter Description Practice Location Reason(s) For Visit Diagnoses Date Provider Providers Copied on Encounter [facility], [place], [place], [address], tel:[phone] [place] No Information 0 Adelia Aleman. . [facility], [place], [place], [address], tel:[phone] [place] No Information 0 Adelia Aleman. . [facility], [place], [place], [address], tel:[phone] [place] No Information 0-202 0 Adelia Aleman. . [facility], [place], [place], [address], tel:[phone] [place] No Information 3-202 0 Adelia Aleman. . [facility], [place], [place], [address], tel:[phone] [place] No Information 9-202 0 Adelia Aleman. . [facility], [address], [place], [place], [address], tel:[phone] [place] No Information 7-202 0 Adelia Aleman. . Family History Family Member Type Diagnosis Age At Onset No Information Payers Payer name Insurance type Covered alliance party ID Authoriza tion(s) No Information Social History [...]
--- OUTSIDE RECORDS SUMMARY | 2025-01-09 05:26 | XMS_ITS | Clinical Summary ---
Author Organization [facility] Address [address] [place] [address] Care Team Providers Care Director Public Name Role Phone Unavailable Primary Care Provider Unavailabl e Source Comments [facility] [email or web address],non-owned Affiliates and Associated Physician Practices is amultiple site organization consisting of ambulatory clinics and hospital sitesin [place] and [place]. This disclosure is being madepursuant to the Care Everywhere program and may not contain all information available regarding this patient. Last updated 18.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
== END 2025-01-09 06:16 | disposition home or self-care (01) ==
PROVIDERS: Emergency Provider Student in an Organized Health Care Education/Training Program; PCP Family Medicine
DX: S50.02XA Contusion of left elbow, initial encounter (principal); V49.40XA Driver injured in collision with unspecified motor vehicles in traffic accident, initial encounter; Y92.410 Unspecified street and highway as the place of occurrence of the external cause; Y99.0 Civilian activity done for income or pay; I10 Essential (primary) hypertension; E11.9 Type 2 diabetes mellitus without complications; E78.5 Hyperlipidemia, unspecified; D57.3 Sickle-cell trait; M19.012 Primary osteoarthritis, left shoulder; Z79.84 Long term (current) use of oral hypoglycemic drugs
CPT/HCPCS: 73030; 73070; 73120; 99284

== ENCOUNTER 2025-05-31 03:15 | Emergency (ER) | payer BC, SELFPAY ==
[2025-05-31 03:27] VITALS: BP 143/93; PULSE 61; RESP 17; TEMP 36.6; O2SAT 98
--- NOTE | 2025-05-31 04:51 | ED.RECABL ---
HPI - Recheck/Abnormal Lab/Rx General Chief Complaint: Recheck/Abnormal Lab/Rx Stated Complaint: bp high Time Seen by Provider: 05/31/25 03:31 History of Present Illness HPI narrative: 54-year-old male with history of hypertension on amlodipine and lisinopril. Patient presents to the emergency department today with elevated blood pressure readings. Patient states he was having difficulty falling asleep and has been doing with insomnia for last 9 months. Incidentally he has also been having a whooshing/thumping in his right ear whenever his blood pressure gets elevated. Does not have any sensations of tinnitus or ringing or worsening/thumping currently not his blood pressure is lower in the 120s systolic. Patient has no symptoms at this time. Patient denies any fever, chills. Patient is mostly concerned about his blood pressure. Denies any chest pain, shortness of breath, nausea, vomiting abdominal pain, back pain, fever, chills, neck pain. No traumatic injuries. No vertiginous symptoms or ataxia. Ambulatory with a steady gait. Related Data Home Medications ?Medication ?Instructions ?Recorded ?Confirmed ?Last Taken ?Type atorvastatin 40 mg tablet 40 mg PO HS 02/26/21 05/31/25 05/31/25 History lisinopril 20 1 tablet PO BID 02/26/21 05/31/25 05/31/25 History mg-hydrochlorothiazide 12.5 mg tablet aspirin 81 mg tablet,delayed 81 mg PO .once daily 05/31/25 05/31/25 05/31/25 History release potassium chloride 20 mEq 20 meq PO DAILY 05/31/25 05/31/25 05/31/25 History tablet,extended release(part/cryst) (Klor-Con M) Allergies Allergy/AdvReac Type Severity Reaction Status Date / Time No Known Allergies Allergy Unknown Verified 05/31/25 03:33 Review of Systems Review of Systems: As reviewed above in HPI All systems reviewed & are unremarkable except as noted in HPI and below [facility] Past Medical History Medical History (Updated 05/31/25 @ 05:35 by Isaac Wolf MD) Sickle cell trait Diabetes Hyperlipidemia Hypertension Social History Social History Smoking status: Never smoker Alcohol intake: current Gender identity (if verbalized by the patient): Male Exam Narrative: GENERAL: [Well-appearing, well-nourished, and in no acute distress.] HEAD: [Normocephalic, atraumatic.] EYES: [PERRLA and EOMI.] ENT: Nares clear, no rhinorrhea or epistaxis. Mucous membranes moist. Clear tympanic membranes bilaterally, no masses or pulsatility noted. No tenderness. No neck pain or stiffness. No bruits auscultated. NECK: Supple. CHEST: [Clear to auscultation. No respiratory distress.] HEART: [Regular rate and rhythm]. No murmur heard. [Normal peripheral pulses.] ABDOMEN: [Soft, nondistended], [nontender], [No rigidity or guarding] EXTREMITIES: Normal range of motion. [No edema.] SKIN: Warm, dry, no rash. NEURO: [No focal deficits]. Alert and oriented [x3.] PSYCH: [Normal mood and affect.] Course Vital Signs Vital signs: Vital Signs Temperature 36.6 C 05/31/25 03:27 Pulse Rate 61 05/31/25 03:27 Respiratory Rate 17 05/31/25 03:27 Blood Pressure 143/93 H 05/31/25 03:27 Pulse Oximetry 98 05/31/25 03:27 Oxygen Delivery Room Air 05/31/25 03:27 Temperature 36.6 C 05/31/25 03:27 Pulse Rate 60 05/31/25 05:42 Respiratory Rate 16 05/31/25 05:42 Blood Pressure 112/64 05/31/25 05:42 Pulse Oximetry 100 05/31/25 05:42 Oxygen Delivery Room Air 05/31/25 03:27 MDM - Recheck/Abnormal Lab/Rx MDM Narrative Medical decision making narrative: 54-year-old male with history of hypertension on amlodipine and lisinopril. Patient presents to the emergency department today with elevated blood pressure readings. Patient states he was having difficulty falling asleep and has been doing with insomnia for last 9 months. Incidentally he has also been having a whooshing/thumping in his right ear whenever his blood pressure gets elevated. Does not have any sensations of tinnitus or ringing or worsening/thumping currently not his blood pressure is lower in the 120s systolic. Patient has no symptoms at this time. Patient denies any fever, chills. Patient is mostly concerned about his blood pressure. Denies any chest pain, shortness of breath, nausea, vomiting abdominal pain, back pain, fever, chills, neck pain. No traumatic injuries. No vertiginous symptoms or ataxia. Ambulatory with a steady gait. Clear tympanic membranes bilaterally, no masses or pulsatility noted. No tenderness. No neck pain or stiffness. No bruits auscultated. Normal vital signs, strong symmetric pulses. Asymptomatic at this time. Will obtain basic laboratory studies but likely patient will be safe for discharge home given his lack of any symptoms at this time and he will follow up with his primary care provider. Will be given referral to ENT for the intermittent tinnitus. Labs unremarkable. Hemodynamically stable with no hypertension. No symptoms at this time. Discharge with ENT and PCP follow-up. Medical Records Attestation: I reviewed the patient's medical records. Lab Data Attestation: I reviewed the patient's lab results. 05/31/25 05:00 05/31/25 05:00 Labs: Lab Results 05/31/25 Range/Units 05:00 WBC 5.1 (4.5-10.0) K/mm3 RBC 4.96 (4.6-6.20) M/mm3 Hgb 14.1 (14.0-18.0) g/dL Hct 40.9 L (42.0-52.0) % MCV 82.5 (80-100) fl MCH 28.4 (26-34) pg MCHC 34.5 (32-36) g/dl RDW 13.2 (11.5-14.5) % Plt Count 189 (150-375) k/mm3 MPV 10.3 (7.4-10.4) fl Immature Gran % (Auto) 0.2 (0-0.5) % Neut % (Auto) 59.6 (45.5-73.1) % Lymph % (Auto) 30.5 (18.3-44.2) % [place] % (Auto) 8.1 (2.6-8.5) % Eos % (Auto) 1.2 (0-4.4) % Baso % (Auto) 0.4 (0.2-1.2) % Lymph # (Auto) 1.54 (0.9-3.2) K/mm3 [place] # (Auto) 0.4 (0.1-0.6) K/mm3 Eos # (Auto) 0.1 (0-0.3) K/mm3 Baso # (Auto) 0.0 (0.0-0.1) K/mm3 Abs Immat Gran (auto) 0.01 (0.00-0.031) K/mm3 Absolute Neuts (auto) 3.0 (1.3-6.7) K/mm3 Absolute Nucleated RBC 0.000 (0.0-0.012) K/mm3 Nucleated RBC % 0.0 (0.0-0.2) % Sodium 136 L (137-145) mmol/L Potassium 3.4 (3.4-5.0) mmol/L Chloride 102 (98-107) mmol/L Carbon Dioxide 30 (22-30) mmol/L Anion Gap 4 (4-12) mmol/L BUN 12 (9-20) mg/dL Creatinine 1.04 (0.7-1.3) mg/dL Estim Creat Clear Calc Not Reportable Estimated GFR > 60 (59 - ) Glucose 123 H (65-110) mg/dL Calcium 8.5 (8.4-10.2) mg/dL Magnesium 2.1 (1.6-2.3) mg/dL Discharge Plan Discharge Clinical Impression: Asymptomatic hypertension, Tinnitus of right ear Patient Disposition: Home Condition: Stable Instructions: Antibiotic Form, Tinnitus (ED) Additional Instructions: Follow-up with your primary care provider regarding her blood pressure management. Laboratory studies are reassuring and unremarkable. Follow-up with equity research associate regarding the occasional tinnitus in your ear. Return with any emergent concerns at any time. Return with any crushing chest pain, shortness of breath, stroke symptoms, losing consciousness, coughing up blood or any other signs of emergency. Patient Language: Occitan Prescriptions: No Action atorvastatin 40 mg tablet 40 mg PO HS lisinopril-hydrochlorothiazide 20-12.5 mg tablet 1 tablet PO BID Rx Instructions: TAKE ONE TABLET BY MOUTH TWICE A DAY acetaminophen [Tylenol Extra Strength] 500 mg tablet 1,000 mg PO TID PRN (Reason: pain) Qty: 30 0RF aspirin 81 mg tablet,delayed release (DR/EC) 81 mg PO .once daily potassium chloride [Klor-Con M20] 20 mEq tablet,ER particles/crystals 20 meq PO DAILY amlodipine 10 mg tablet 10 mg PO DAILY Qty: 90 1RF Rx Instructions: TAKE ONE TABLET BY MOUTH ONCE DAILY Follow-up/Referrals: Mike,Owen Prather MD [Primary Care Provider, Unknown] Srinath Mendez MD [Physician, Ear, Nose, Throat] - 3 Days Referral Note: Intermittent pulsatile tinnitus right ear Time of Disposition: 05:35
[2025-05-31 05:06] LABS: Hematocrit 40.9 % (42.0-52.0); Hemoglobin 14.1 g/dL (14.0-18.0); Immature Granulocyte Percent A 0.2 % (0-0.5); Lymphocytes Absolute Auto 1.54 K/mm3 (0.9-3.2); Mean Corpuscular HGB Conc 34.5 g/dl (32-36); Mean Corpuscular Hemoglobin 28.4 pg (26-34); Mean Corpuscular Volume 82.5 fl (80-100); Nucleated Red Blood Cells Absolute Auto 0.000 K/mm3 (0.0-0.012); Nucleated Red Blood Cells Perc 0.0 % (0.0-0.2); Platelet Count Result 189 k/mm3 (150-375); Red Blood Count 4.96 M/mm3 (4.6-6.20); White Blood Count 5.1 K/mm3 (4.5-10.0)
[2025-05-31 05:18] LABS: Anion Gap 4 mmol/L (4-12); Blood Urea Nitrogen 12 mg/dL (9-20); Calcium 8.5 mg/dL (8.4-10.2); Carbon Dioxide 30 mmol/L (22-30); Chloride 102 mmol/L (98-107); Estimated Glomerular Filt Rate > 60; Glucose 123 mg/dL (65-110); Magnesium 2.1 mg/dL (1.6-2.3); Potassium 3.4 mmol/L (3.4-5.0); Sodium 136 mmol/L (137-145)
[2025-05-31 05:42] VITALS: BP 112/64; PULSE 60; RESP 16; O2SAT 100
== END 2025-05-31 05:48 | disposition home or self-care (01) ==
PROVIDERS: Emergency Provider Student in an Organized Health Care Education/Training Program; PCP Family Medicine
DX: I10 Essential (primary) hypertension (principal); H93.11 Tinnitus, right ear; E11.9 Type 2 diabetes mellitus without complications; E78.5 Hyperlipidemia, unspecified; Z79.82 Long term (current) use of aspirin
CPT/HCPCS: 36415; 80048; 83735; 85025; 99283